=== PATIENT | male | born 1980 | race Two or more races ===

== ENCOUNTER 2016-07-21 21:22 | Emergency (ER) | payer OTHER ==
[~2016-07-21] VITALS: Ht 177.8 cm; Wt 74.8 kg
--- NOTE | 2016-07-21 22:03 | NUR ---
PT AMBULATORY TO ER BED 6 C/O HEADACHE AND DIZZINESS, AND MID EPIGARSTIC PAIN. PT AOX3 RR EVEN AND UNLABORED. NO SOB NOTED. NAD NOTED. NO NVD. PT NOT DIAPHORETIC. PT GOWNED AND PLACED ON MONITOR. PT WAITING FOR MD DENTON.
--- NOTE | 2016-07-21 22:15 | NUR ---
DR. AGUIRRE AT BEDSIDE FOR EVAL.
[2016-07-21] MEDS ORDERED: MAG HYDROX/AL HYDROX/SIMETH 30 ML UDC ONE (22:26)
[2016-07-21] MEDS ORDERED: LIDOCAINE VISCOUS 2% UD 15 ML UDC ONE (22:26)
[2016-07-21] MEDS ORDERED: LIDOCAINE VISCOUS 2% UD 15 ML UDC MM ONE (22:30)
[2016-07-21] MEDS ORDERED: MAG HYDROX/AL HYDROX/SIMETH 30 ML UDC PO ONE (22:30)
--- NOTE | 2016-07-21 22:33 | NUR ---
PT STATES HE WANTS TO HOLD OF ON TAKING MEDICATION AT THIS TIME.
[2016-07-21 22:45] VITALS: BP 116/78
--- NOTE | 2016-07-21 22:45 | NUR ---
Patient discharged to home in stable condition. Written and verbal after care instructions given. Patient verbalizes understanding of instruction. ambulatory with a steady gait
== END 2016-07-21 22:46 | disposition home or self-care (01) ==
LOC: ER 21:25
DX: K21.9 Gastro-esophageal reflux disease without esophagitis (principal)
CPT/HCPCS: 93005; 99283; A4606; Z7610

== ENCOUNTER 2016-10-18 15:05 | Emergency (ER) | payer OTHER ==
[~2016-10-18] VITALS: Ht 177.8 cm; Wt 83.9 kg
--- NOTE | 2016-10-18 15:05 | NUR ---
PT BIB SELF LEFT SHOULDER PAIN SINCE MORNING, DENIES TRAUMA. AMBULATORY . GOWNED PT . AWAITING MD ORDER
--- NOTE | 2016-10-18 15:15 | NUR ---
DR ALTMAN AT BEDSIDE FOR EVAL
--- NOTE | 2016-10-18 15:22 | NUR ---
EKG IN PROGRESS
[2016-10-18] MEDS ORDERED: IV NS 0.9% 1,000 ML BAG IV ONE (15:30)
[2016-10-18] MEDS ORDERED: IV SET PRIMARY PUMP SET 1 EA INFUS.SET MC ONE (15:30)
[2016-10-18] MEDS ORDERED: KETOROLAC TROMETHAMINE INJ 30 MG/ML VIAL ONE (15:30)
[2016-10-18] MEDS ORDERED: KETOROLAC TROMETHAMINE INJ 30 MG/ML VIAL IV ONE (15:30)
[2016-10-18] MEDS ORDERED: IV NS 0.9% 1,000 ML ONE (15:30)
--- NOTE | 2016-10-18 15:45 | NUR ---
LAC #20 IV ACCESS. BLOOD SAMPLE COLLECTED SENT TO LAB
[2016-10-18 15:58] LABS: BASOPHILS % (AUTO) 0.2 % (0.0-2.0); EOSINOPHILS # (AUTO) 0.2 /CMM (0.0-0.7); EOSINOPHILS % (AUTO) 1.7 % (0.0-6.0); HEMATOCRIT 45 % (39-51); HEMOGLOBIN 15.3 g/dL (13.5-17.5); LYMPHOCYTES # (AUTO) 2.6 /CMM (0.8-4.8); LYMPHOCYTES % (AUTO) 25.6 % (20.0-44.0); MEAN CORPUSCULAR HEMOGLOBIN 28 PG (26.0-33.0); MEAN CORPUSCULAR HGB CONC 34 g/dl (31.0-36.0); MEAN CORPUSCULAR VOLUME 84 fL (80-96); MONOCYTES # (AUTO) 0.6 /CMM (0.1-1.30); NEUTROPHILS # (AUTO) 6.7 /CMM (1.8-8.9); NEUTROPHILS % (AUTO) 66.5 % (43.0-81.0); PLATELET COUNT (AUTO) 253 /CMM (150-450); RDW COEFFICIENT OF VARIATION 13.5 (11.5-15.0); RED BLOOD CELL COUNT(AUTO) 5.38 MIL/uL (4.5-6.0)
[2016-10-18 16:01] LABS: CALCIUM, SERUM 9.7 mg/dL (8.5-10.1); CREATININE 1.1 mg/dL (0.6-1.3); POTASSIUM 3.9 mmol/L (3.5-5.1)
[2016-10-18 16:20] LABS: D-DIMER 0.19 mg/L(FEU (0.17-0.50); INR 1.01 (0.87-1.13); PROTHROMBIN TIME 10.8 SECS (9.5-12.7)
--- NOTE | 2016-10-18 17:15 | NUR ---
Patient discharged to home in stable condition. Written and verbal after care instructions given. Patient verbalizes understanding of instruction.
--- NOTE | 2016-10-18 17:15 | NUR ---
IV removed. Catheter intact and site benign. Pressure and 4x4 applied to site. No bleeding noted.
[2016-10-18 17:29] VITALS: BP 121/83
== END 2016-10-18 17:29 | disposition home or self-care (01) ==
LOC: ER 15:07
DX: M25.512 Pain in left shoulder (principal); R06.02 Shortness of breath; M79.1 Myalgia
CPT/HCPCS: 36415; 71010-TC; 80048-TC; 85025-TC; 85378-TC; 85730-TC; A4606; J1885; J7030; Z7610

== ENCOUNTER 2022-09-28 14:39 | Emergency (ER) | payer OTHER ==
[~2022-09-28] VITALS: Ht 182.9 cm; Wt 82.6 kg
--- NOTE | 2022-09-28 14:45 | NUR ---
MD DENTON.TO ER 16 [facility]
[2022-09-28] MEDS ORDERED: KETOROLAC TROMETHAMINE INJ 60 MG/2 ML VIAL IM ONE (15:00)
[2022-09-28] MEDS ORDERED: CYCLOBENZAPRINE 10 MG TABLET PO ONE (15:00)
[2022-09-28] MEDS ORDERED: CYCLOBENZAPRINE 10 MG TABLET ONE (15:00)
[2022-09-28] MEDS ORDERED: KETOROLAC TROMETHAMINE INJ 30 MG/ML VIAL ONE (15:00)
[2022-09-28] MEDS ORDERED: CYCL5TAB PO (16:15)
[2022-09-28 16:26] VITALS: BP 135/88
--- NOTE | 2022-09-28 16:27 | NUR ---
Patient discharged to home in stable condition. Written and verbal after care instructions given. Patient verbalizes understanding of instruction.
== END 2022-09-28 16:26 | disposition home or self-care (01) ==
LOC: ER 14:40
DX: M54.50 Low back pain, unspecified (principal); Z60.2 Problems related to living alone
CPT/HCPCS: 99283; 96372; 72110; J1885